=== PATIENT | female | born 1985 | race Hispanic/Latino ===

== ENCOUNTER 2017-04-16 16:41 | Outpatient (CLI) | payer OTHER ==
[2017-04-16 17:26] VITALS: BP 128/82
[2017-04-16] MEDS ORDERED: LACTATED RINGERS 500 ML IV ONE (17:43)
== END 2017-04-16 18:00 | disposition home or self-care (01) ==
LOC: TRG 16:41
PROVIDERS: ATTEND Obstetrics & Gynecology
DX: O47.1 False labor at or after 37 completed weeks of gestation (principal); Z3A.38 38 weeks gestation of pregnancy
CPT/HCPCS: 59025

== ENCOUNTER 2017-04-18 11:04 | Emergency (ER) | payer OTHER ==
[2017-04-18 12:52] VITALS: BP 121/94
== END 2017-04-18 23:02 | disposition left against medical advice (07) ==
LOC: ED 11:04
DX: Z53.21 Procedure and treatment not carried out due to patient leaving prior to being seen by health care provider (principal)

== ENCOUNTER 2017-04-24 15:43 | Outpatient (CLI) | payer OTHER ==
[2017-04-24 16:11] VITALS: BP 122/67
--- NOTE | 2017-04-24 18:09 | Ultrasound Report ---
FINAL REPORT PROCEDURE: US OB BPP WO NON-STRESS TECHNIQUE: Sonographic evaluation for breathing, movement, tone, and amniotic fluid volume was performed. CPT 40918 HISTORY: WELL BEING, DECREASED MOVEMENT COMPARISON: No prior studies are available for comparison. FINDINGS: Amniotic fluid volume: Normal-score 2. At least one vertical pocket > 2 cm or more in vertical axis. breathing: Normal-score 2. movement: Normal-score 2. tone: Normal. Score: 8 of 8. Heart rate 146 beats per minute IMPRESSION: Normal biophysical profile.
--- NOTE | 2017-04-24 18:10 | Ultrasound Report ---
FINAL REPORT PROCEDURE: US OB LIMITED TECHNIQUE: Real-time limited sonographic examination was performed for evaluation of size, position, heartbeat, fluid volume for each fetus with image documentation (1 or more fetuses). CPT 50403 HISTORY: WELL BEING, DECREASED MOVEMENT COMPARISON: 04/24/2017 FINDINGS: Single viable fetus cephalic position. TRICIA 13.3. Heart rate 146 beats per minute. Due Date (earliest scan): 05/01/2017. IMPRESSION: Viable fetus as above
== END 2017-04-24 17:09 | disposition home or self-care (01) ==
LOC: TRG 15:43
PROVIDERS: ATTEND Obstetrics & Gynecology
DX: Z34.93 Encounter for supervision of normal pregnancy, unspecified, third trimester (principal); Z3A.39 39 weeks gestation of pregnancy
CPT/HCPCS: 76815; 76819

== ENCOUNTER 2017-05-01 04:28 | Outpatient (CLI) | payer OTHER ==
[2017-05-01] MEDS ORDERED: VISTARIL PO ONE (05:16)
[2017-05-02 17:31] VITALS: BP 104/52
== END 2017-05-01 05:24 | disposition home or self-care (01) ==
LOC: TRG 04:28
PROVIDERS: ATTEND Obstetrics & Gynecology
DX: O48.0 Post-term pregnancy (principal); Z3A.40 40 weeks gestation of pregnancy
CPT/HCPCS: Q0177